=== PATIENT | female | born 1990 | race Caucasian/White ===

== ENCOUNTER 2023-03-21 10:53 | Outpatient (REF) | payer OTHER, SELFPAY ==
[2023-03-21 17:50] LABS: Calculated LDL 98 mg/dL (<100); Cholesterol 214 mg/dL (<200); HDL Cholesterol 105 mg/dL (40-60); Triglyceride 58 mg/dL (<150)
[2023-03-21 18:12] LABS: Vitamin D 25 Total 16.1 ng/mL (30-100)
== END 2023-03-21 10:54 | disposition home or self-care (01) ==
LOC: NCHCN 10:53
PROVIDERS: Visit Provider Nurse Practitioner Family
DX: F41.8 Other specified anxiety disorders (principal); F90.9 Attention-deficit hyperactivity disorder, unspecified type
CPT/HCPCS: 80061; 82306

== ENCOUNTER 2023-09-10 15:20 | Outpatient (REF) | payer OTHER, SELFPAY ==
--- NOTE | 2023-09-10 11:45 | PAPFT_PTH ---
PATIENT: Lisa Guerra LOC: [facility] U#:[id number] AGE/SX: 32/F ROOM: RE09/10/[address]: Sarah De La Vega : 1990 BED: DIS: 09/10/2023 SPEC #: [id number] RECD: 09/10/23 18:23 STATUS: JG REQ #: [id number] CATHY: 09/10/23 11:[address]: Sarah De La Vega DEPT: [facility] Cytology RECD BY: Chelsea Ruelas ENTERED: 09/10/23 18:23 SP TYPE: PAPFT OT DR: Unknown,Unknown Tissues: 1 - CX/ENDOCX FOR PAP SMEARS Procedures: PAP THIN PREP/[facility] Screening HPV DNA PROBE Comments: [id number]
== END 2023-09-10 15:21 | disposition home or self-care (01) ==
LOC: NCHCN 15:20
PROVIDERS: Visit Provider Nurse Practitioner Family
DX: Z01.419 Encounter for gynecological examination (general) (routine) without abnormal findings (principal)
CPT/HCPCS: 88142; 87624

== ENCOUNTER 2023-12-03 12:45 | Outpatient (REF) | payer OTHER, MEDICAID, SELFPAY ==
[2023-12-03 15:27] LABS: Abs Immature Grans 0.01 10^3/uL (0.0-0.06); Absolute Basophil Count 0.04 10^3/uL (0.0-0.2); Absolute Eosinophil Count 0.06 10^3/uL (0.0-0.7); Absolute Lymphocyte Count 1.47 10^3/uL (1.2-3.4); Absolute Monocyte Count 0.42 10^3/uL (0.1-0.8); Absolute Neutrophil Count 1.93 10^3/uL (1.2-6.7); Eosinophils % 1.5 %; HGB 12.6 g/dL (11.2-15.7); Immature Grans % 0.3 %; Lymphocytes % 37.4 %; MCH 31.3 pg (27.0-33.0); MCHC 34.1 % (32.0-36.0); MCV 92 fL (80-95); MPV 9.5 fL (8.0-11.0); Monocytes % 10.7 %; Neutrophils % 49.1 %; Platelet Count 299 10^3/uL (130-400); RBC 4.03 10^6/uL (3.93-5.22); RDW 12.3 % (11.7-14.6); RDW-SD 41.8 fL; WBC 3.93 10^3/uL (4.4-10.8)
[2023-12-03 15:34] LABS: ESR 8 mm/hr (0-20); PTT Activated 25.9 sec (23.6-32.8)
[2023-12-03 15:45] LABS: Anion Gap 9.6 mmol/L (3-11); BUN 16 mg/dL (7-18); CO2 23.4 mmol/L (21.0-32.0); CREATININE 0.9 mg/dL (0.55-1.02); Chloride 106 mmol/L (98-107); Estimated GFR 86.03 (mL/min/1.73m2); Glucose 90 mg/dL (74-106); Potassium 4.2 mmol/L (3.5-5.1); Sodium 139 mmol/L (136-145)
[2023-12-03 15:46] LABS: C-Reactive Protein < 0.50 mg/dL (<or=0.5)
== END 2023-12-03 12:46 | disposition home or self-care (01) ==
LOC: NCHCN 12:45
PROVIDERS: PCP Nurse Practitioner Family; Visit Provider Nurse Practitioner Family
DX: L28.2 Other prurigo (principal)
CPT/HCPCS: 80048; 85652; 85025; 85730; 86038; 86140

== ENCOUNTER 2023-12-19 18:55 | Outpatient (REF) | payer OTHER, MEDICAID, SELFPAY ==
[2023-12-23 15:56] LABS: ANA Interpretation Negative (Negative)
== END 2023-12-19 18:56 | disposition home or self-care (01) ==
LOC: NCHCN 18:55
PROVIDERS: PCP Nurse Practitioner Family; Visit Provider Nurse Practitioner Family
DX: Z00.00 Encounter for general adult medical examination without abnormal findings (principal)
CPT/HCPCS: 86038

== ENCOUNTER 2024-10-22 14:18 | Outpatient (CLI) | payer MEDICAID, SELFPAY ==
[2024-10-22 12:53] LABS: Abs Immature Grans 0.01 10^3/uL (0.0-0.06); Absolute Basophil Count 0.06 10^3/uL (0.0-0.2); Absolute Eosinophil Count 0.08 10^3/uL (0.0-0.7); Absolute Lymphocyte Count 1.72 10^3/uL (1.2-3.4); Absolute Monocyte Count 0.51 10^3/uL (0.1-0.8); Absolute Neutrophil Count 2.67 10^3/uL (1.2-6.7); Basophils % 1.2 %; Eosinophils % 1.6 %; HCT 39.4 % (36.0-46.0); HGB 13.5 g/dL (11.2-15.7); Immature Grans % 0.2 %; Lymphocytes % 34.1 %; MCH 31.6 pg (27.0-33.0); MCHC 34.3 % (32.0-36.0); MCV 92 fL (80-95); MPV 9.2 fL (8.0-11.0); Monocytes % 10.1 %; Neutrophils % 52.8 %; Platelet Count 386 10^3/uL (130-400); RBC 4.27 10^6/uL (3.93-5.22); RDW 12.7 % (11.7-14.6); RDW-SD 42.9 fL; WBC 5.05 10^3/uL (4.4-10.8)
[2024-10-22 13:57] LABS: Iron 35 ug/dL (50-170); Total Iron Binding Capacity 374 ug/dL (250-450); Transferrin Sat 9 % (15-50)
[2024-10-22 14:18] LABS: ALT 17 U/L (14-59); AST 11 U/L (15-37); Albumin 3.9 g/dL (3.4-5.0); Alkaline Phosphatase 82 U/L (46-116); Anion Gap 6.8 mmol/L (3-11); BUN 13 mg/dL (7-18); Bilirubin, Total 0.3 mg/dL (0.2-1.0); CO2 25.2 mmol/L (21.0-32.0); CREATININE 0.8 mg/dL (0.55-1.02); Calcium 9.5 mg/dL (8.5-10.1); Chloride 108 mmol/L (98-107); Estimated GFR 98.48 (mL/min/1.73m2); Glucose 94 mg/dL (74-106); Potassium 4.1 mmol/L (3.5-5.1); Sodium 140 mmol/L (136-145); Total Protein 7.9 g/dL (6.4-8.2); Vitamin B12 544 pg/mL (193-986); Vitamin D 25 Total 20 ng/mL (30-100)
== END 2024-10-22 14:19 | disposition home or self-care (01) ==
LOC: LBO 14:20
PROVIDERS: Visit Provider Registered Nurse
DX: F50.81 Binge eating disorder (principal); R63.4 Abnormal weight loss; Z51.81 Encounter for therapeutic drug level monitoring; E55.9 Vitamin D deficiency, unspecified
CPT/HCPCS: 36415; 80053; 82306; 82607; 83540; 83550; 84443; 85025